=== PATIENT | male | born 1980 ===

== ENCOUNTER 2018-03-05 15:36 | Emergency (ER) | payer SELFPAY ==
[~2018-03-05] VITALS: Ht 177.8 cm; Wt 86.2 kg
[2018-03-05 15:39] VITALS: Ht 177.8 cm; Wt 86.2 kg
[2018-03-05 16:01] VITALS: BP 120/80
== END 2018-03-05 16:01 | disposition other institution (70) ==
LOC: ED 15:36
DX: Z02.89 Encounter for other administrative examinations (principal)

== ENCOUNTER 2018-03-05 15:36 | Emergency (ER) | payer OTHER | END 2018-03-05 16:01 | disposition other institution (70) | LOC: ED 15:36 | DX: Z02.89 Encounter for other administrative examinations (principal) ==